=== PATIENT | male | born 1940 | race Caucasian/White ===

== ENCOUNTER 2020-04-13 11:32 | Inpatient (IN) | payer OTHER ==
[~2020-04-13] VITALS: Ht 180.3 cm; Wt 55.1 kg
--- NOTE | ~2020-04-13 | EMS ---
[facility] [address] [place] [address] EMS Patient Care Report Name: LUCILA SOTO Room #: 170-9 ADM IN M.R.#: [id number] Admission: 04/13/20 Attend Phys: Jesus Vargas MD Discharge: Date of : 38 Report #: [id number] THIS REPORT FOR: //name// Report Transmitted: 04/13/2020 22:04 EMS Care Summary [place], [place]/[facility] Incident [id number] @ 04/13/2020 10:40 Incident Location [address] [facility] 307 Patient LUCILA SOTO Male, 79 Years 1940 Patient Address [address] [address] Patient History Congestive Heart Failure (CHF),Dementia,Hyperlipidemia, Patient Allergies Morphine,Meperidine,Metformin, Patient Medications None Reported, Chief Complaint Altered Mental status Disposition Transported No Lights/[place] Dispatch Reason Falls Transported To [facility] Narrative Responded to the half-way for report of a patient who had fell. Arrived on scene at the half-way and found the patient in room 307 lying in bed alert to self with a GCS of 14. Firefighters arrived first on scene and received [address] [address] EMS Patient Care Report Name: LUCILA SOTO Room #: 170-9 ADM IN M.Sly.#: [id number] Admission: 04/13/20 Attend Phys: Jesus Vargas MD Discharge: Date of : 38 Report #: [id number] report from the half-way staff. The firefighters on scene relayed the information provided by the half-way staff to EMS. The firefighters on scene reported that the patient was reported to have an unwitnessed fall yesterday and was found by the staff at the facility lying on the ground. Firefighters reported that the half-way staff stated advised that 911 was called because the half-way staff believed that the patient was experiencing altered mental status and reported that the patient was experiencing left shoulder pain. The patient was able to follow commands and was assessed by EMS on scene and found to be negative on a [place] [facility] prehospital stroke assessment. The patient was questioned and found to be alert to self but was unaware that he had sustained a fall. The patient when questioned asked if he was experiencing shoulder pain and the patient would not his head vertically back and forth. The patient was then assisted from the half-way bed using a sheet carry and placed ontp the stretcher without incident. The patient was then moved out of the facility and placed into the back of the ambulance without incident. The patient was monitored throughout transport with no changes in mental status or condition. Patient care was transferred to the receiving facility without incident. Med unit back in service. Initial Vitals @11:06P: 52, @11:15P: 76,CO: 2,SpO2: 96, @11:03P: 64,R: 18,BP: 166/69,Pain: 2/10,GCS: 14,SpO2: 95,Revised Trauma: 12, @11:07P: 85,SpO2: 94, @11:09P: 64,R: 18,BP: 171/74,Pain: 2/10,GCS: 14,Glucose: 110,SpO2: 92,Revised Trauma: 12, Assessments @11:00MENTAL:Confused,Person Oriented,SKIN:HEENT:Head/Face: No Abnormalities,Neck/Airway: No Abnormalities,LUNG SOUNDS:General: No Abnormalities,Left Upper: No Abnormalities,Right Upper: No Abnormalities,Left Lower: No Abnormalities,Right Lower: No Abnormalities,ABDOMEN:General: No Abnormalities,Left Upper: No Abnormalities,Right Upper: No Abnormalities,Left Lower: No Abnormalities,Right Lower: No Abnormalities,PELVIS//GI:No Abnormalities,EXTREMITIES:Left Arm: No Abnormalities,Right Arm: No Abnormalities,Left Leg: No Abnormalities,Right Leg: No Abnormalities,PULSE:NEURO: Impression Altered Mental Status Procedures @11:1512-Lead ECGResponse: UnchangedSucceeded@11:0712-Lead ECGResponse: UnchangedSucceeded@11:00ALS AssessmentResponse: UnchangedSucceeded@11:063-Lead ECGResponse: UnchangedSucceeded@11:08Saline Lock 3cc (20 ga) Site: [place] [address] EMS Patient Care Report Name: LUCILA SOTO Room #: 170-9 ADM IN M.R.#: [id number] Admission: 04/13/20 Attend Phys: Jesus Vargas MD Discharge: Date of : 38 Report #: [id number] Antecubital-LeftResponse: UnchangedFailed Timeline 10:39,Call Received 10:39,Dispatch Notified 10:40,Dispatched 10:45,En Route 10:59,On Scene 11:00,At Patient 11:00,ALS Assessment,Response: UnchangedSucceeded, 11:03,BP: 166/69 M,PULSE: 64,RR: 18 R,SPO2: 95 Ox,ETCO2: ,BG: ,PAIN: 2,GCS: 14, 11:06,3-Lead ECG,Response: UnchangedSucceeded, 11:06,BP: / M,PULSE: 52,RR: R,SPO2: Ox,ETCO2: ,BG: ,PAIN: ,GCS: , 11:07,12-Lead ECG,Response: UnchangedSucceeded, 11:07,BP: / M,PULSE: 85,RR: R,SPO2: 94 Ox,ETCO2: ,BG: ,PAIN: ,GCS: , 11:08,Saline Lock 3cc 20 ga Site: Antecubital-Left,Response: UnchangedFailed, 11:09,BP: 171/74 M,PULSE: 64,RR: 18 R,SPO2: 92 Ox,ETCO2: ,B,PAIN: 2,GCS: 14, 11:13,Depart Scene 11:15,12-Lead ECG,Response: UnchangedSucceeded, 11:15,BP: / M,PULSE: 76,RR: R,SPO2: 96 Ox,ETCO2: ,BG: ,PAIN: ,GCS: , 11:27,At Destination 11:47,Call Closed Disclaimer v1.1 Copyright 2020 [employer] This EMS Care Summary contains data elements from the applicable legal record (which may be displayed differently). It is designed to provide pertinent information for the following purposes: continuity of care, clinical quality, and state data reporting. The complete legal record is available to ED staff and administrators of the receiving hospital in [employer] Patient Tracker. All data is provided "as is."
[2020-04-13 11:37] VITALS: BP 147/65
[2020-04-13 12:15] LABS: URINE BILIRUBIN NEGATIVE (Negative); URINE BLOOD 3+ (Negative); URINE CLARITY CLEAR; URINE COLOR YELLOW; URINE GLUCOSE-RANDOM* NEGATIVE (Negative); URINE KETONES NEGATIVE (Negative); URINE LEUKOCYTES-REFLEX TRACE (Negative); URINE NITRITE-REFLEX NEGATIVE (Negative); URINE PROTEIN (DIPSTICK) NEGATIVE (Negative); URINE UROBILINOGEN 0.2 E.U./dl (0.2-1.0)
[2020-04-13 12:19] LABS: ABSOLUTE NEUTROPHILS 7.3 thou/uL (1.4-8.2); BASOPHILS 0.2 % (0.0-2.0); EOSINOPHILS 0.2 % (0.0-3.0); HEMATOCRIT 36.2 % (42.0-52.0); HEMOGLOBIN 12.4 gm/dL (14.0-18.0); LYMPHOCYTES 13.2 % (24.0-44.0); MCH 33.4 pg (26.0-34.0); MCHC 34.2 g/dL (28.0-37.0); MCV 97.6 fL (80.0-100.0); MONOCYTES 6.6 % (1.0-8.0); PLATELET COUNT 146 thou/uL (150-400); POLYS 79.8 % (36.0-66.0); RBC 3.71 mil/uL (4.50-6.00); RDW 13.8 % (10.5-14.5); WBC 9.1 thou/uL (4.0-11.0)
--- NOTE | 2020-04-13 12:25 | NUR ---
KELLY CLAMPED FOR 10 MIN AFTER 1100 ML DARK BROWN URINE, UNCLAMPED
[2020-04-13 12:29] LABS: CALCIUM 9.8 mg/dL (8.5-10.1); CREATININE 2.8 mg/dL (0.7-1.3)
[2020-04-13 12:37] LABS: BACTERIA-REFLEX 1-9 Few /HPF (None Seen); CASTS None Seen /LPF (None Seen); CRYSTALS None Seen /LPF (None Seen); SQUAMOUS 0-3 Few /LPF (0-3); URINE RBC 3-10 Few /HPF (0-2); URINE WBC-REFLEX 0-5 Rare /HPF (0-5)
[2020-04-13 19:14] LABS: FOLIC ACID 35.8 ng/mL (8.6-58.9)
--- NOTE | 2020-04-13 20:33 | NUR ---
TALKED WITH DAUGHTER JAYME SOTO, SHE IS AWARE OF CONDITION AND ADMISSION
[2020-04-13 22:55] VITALS: BP 167/81
[2020-04-13 23:40] VITALS: BP 120/54
[2020-04-13 23:48] VITALS: BP 154/69
--- NOTE | 2020-04-14 01:15 | NUR ---
PT ARRIVED FROM ED @2330 AWAKE AND ALERT. CONFUSED. ANAIS WRIST RESTRAINT INTACT. FOLLEY IN PLACE WITH BLOODY DRAINAGE. IV INTACT WITH FLUIDS INFUSING. PO FLUID PROVIDED. FALL PREC IN PLACE, ISOLATION MAINTAINED. PT 95% ON RA. SCD'S ON ANAIS LOWER EXT. PACEMAKER ON LEFT CHEST. PER REPORT PT WAS VERY RESTLESS IN THE ED, AGITATED AND PULLING ON FOLLEY MEDS GIVEN IN THE ER. ON ASSESSMENT ON THE UNIT PT CALM. WILL CONT TO MONITOR
[2020-04-14 03:18] LABS: ABSOLUTE NEUTROPHILS 7.9 thou/uL (1.4-8.2); HEMATOCRIT 36.6 % (42.0-52.0); HEMOGLOBIN 12.4 gm/dL (14.0-18.0); LYMPHOCYTES 7.4 % (24.0-44.0); MCH 33.5 pg (26.0-34.0); MCHC 33.9 g/dL (28.0-37.0); MCV 98.7 fL (80.0-100.0); MONOCYTES 5.7 % (1.0-8.0); PLATELET COUNT 130 thou/uL (150-400); POLYS 86.9 % (36.0-66.0); RBC 3.71 mil/uL (4.50-6.00); RDW 13.8 % (10.5-14.5); WBC 9.1 thou/uL (4.0-11.0)
[2020-04-14 04:10] LABS: CALCIUM 9.6 mg/dL (8.5-10.1); POTASSIUM 4.5 mmol/L (3.5-5.1)
[2020-04-14 04:11] LABS: CREATININE 1.5 mg/dL (0.7-1.3)
[2020-04-14 04:14] VITALS: BP 120/54
[2020-04-14] MEDS ORDERED: NORVASC 2.5 MG2.5 M1 PO (04:50)
[2020-04-14] MEDS ORDERED: ASA81BEC PO (04:50)
[2020-04-14] MEDS ORDERED: LIPITOR80 MG PO (04:51)
[2020-04-14] MEDS ORDERED: CARVEDILOL12.5 MG PO (04:52)
[2020-04-14] MEDS ORDERED: CLOPIDOGREL75 MG PO (04:54)
[2020-04-14] MEDS ORDERED: HYDROCODON-ACE1 EAC7 PO (04:57)
[2020-04-14] MEDS ORDERED: ISOSORBIDE MONO60 M1 PO (05:00)
[2020-04-14] MEDS ORDERED: LISINOPRIL5 MG PO (05:02)
[2020-04-14] MEDS ORDERED: NITROSTAT0.4 M1 SUBLING (05:11)
[2020-04-14] MEDS ORDERED: PROTONIX40 M3 PO (05:12)
[2020-04-14] MEDS ORDERED: RANOLAZINE ER1000 MG PO (05:13)
[2020-04-14] MEDS ORDERED: SPIRONOLACTONE25 MG PO (05:14)
[2020-04-14] MEDS ORDERED: TAMSULOSIN HCL0.4 MG PO (05:15)
[2020-04-14] MEDS ORDERED: DESYREL150 MG PO (05:16)
[2020-04-14 08:16] VITALS: BP 110/48
--- NOTE | 2020-04-14 13:13 | NUR ---
PT CARE ASSUMED AT 0700. ALERT AND VERY FORGETFUL. NONVERBAL AT THIS TIME WITH MUMBLES TRYING TO COMMUNICATE. SOFT WRIST RESTRAINTS IN PLACE. HODA UPDATED ON PT CARE. PT CONTINUES TO PULL ON KELLY CATHETER SOON RESTRAINTS ARE LOOSENED TO TURN. . PACEMAKER IN PLACE. FEEDER. Q2 TURNS. IV PATENT WITH NO REDNESS OR EDEMA, FLUIDS INFUSING. PT HAS LUCRECIA IN PLACE BEHIND TH EEAR FROM A FALL LAST FRIDAY THAT WERE PLACED AT [place]. FALL PROTOCOL IN PLACE. CALL LIGHT IN REACH. WILL CONTINUE TO MONITOR.
[2020-04-14 17:55] VITALS: BP 113/49
[2020-04-14 20:00] VITALS: BP 121/55
[2020-04-15 03:36] VITALS: BP 146/58
--- NOTE | 2020-04-15 04:17 | NUR ---
PT SLEEPING AT BEGINNING OF SHIFT, NOTED TO WAKE UP WITH RESTLESSNESS ATTEMPTING TO PULL AT LINES. PT REPOSITIONED, RESTRAINTS IN PLACE. PT NOTED TO BE ALERT TO SELF, DISORIENTED TO TIME, PLACE, AND SITUATION. PT ASSESSED WITH INTACT SENSATION AND CAPILLARY REFILL LESS THAN 3SEC IN ALL EXTREMITIES. PT DENIES PAIN AND SOB WHILE ON ROOM AIR. PT RECEIVING SCHEDULED PO NORCO Q8HR. PT NOTED TO CHEW PILLS DESPITE REDIRECTION, PILLS CRUSHED WHEN APPROPRIATE, GIVEN WITH APPLESAUCE. PT TOLERATING PO INTAKE OF FLUIDS AND REGULAR DIET. PT REQUIRING FEEDING ASSISTANCE. PT MAINTAINS KELLY, BLOOD TINGED URINE IN CATHETER BAG, DRIED BLOOD OBSERVED NEAR INSERTION SITE UPON REPORT, NO FURTHER BLEEDING NOTED THROUGHOUT SHIFT. PT RESTING IN BED THROUGHOUT SHIFT, FREQUENT REPOSITIONING ENCOURAGED. PT ENCOURAGED TO NOTIFY STAFF FOR ALL NEEDS, CALL LIGHT WITHIN REACH, BED IN LOWEST POSITION, BED ALARM ON, ROOM REMAINS NEAR NURSES STATION, FREQUENT MONITORING WILL CONTINUE.
[2020-04-15 07:49] VITALS: BP 139/71
--- NOTE | 2020-04-15 10:37 | NUR ---
Assumed care of pt at 0700. Pt drowsy and confused. Restraints in place. Poor appetite. Desai catheter in place. IVF infusing. Pills given crushed in apple sauce. Frequent rounding. Fall precautions in place. Will continue to monitor.
[2020-04-15 10:59] LABS: HEMATOCRIT 29.9 % (42.0-52.0); MCH 33.9 pg (26.0-34.0); MCV 99.6 fL (80.0-100.0); RBC 3.01 mil/uL (4.50-6.00); RDW 14.3 % (10.5-14.5); WBC 10.4 thou/uL (4.0-11.0)
[2020-04-15 11:04] LABS: HEMOGLOBIN 10.2 gm/dL (14.0-18.0)
[2020-04-15 11:28] LABS: CALCIUM 9.1 mg/dL (8.5-10.1); CREATININE 1.1 mg/dL (0.7-1.3); POTASSIUM 4.8 mmol/L (3.5-5.1)
[2020-04-15 15:35] VITALS: BP 128/84
[2020-04-16 07:34] VITALS: BP 144/59
[2020-04-16 15:20] VITALS: BP 125/63
--- NOTE | 2020-04-16 17:30 | NUR ---
PT A&OX4, VSS. PATIENT GIVEN SCHEDULED PAIN MEDICATION. PATIENT REMAINS IN RESTRAINTS D/T PULLING AT CATHETER AND CONSTANTLY TRYING TO CLIMB OUT OF BED. PATIENT EATING AND DRINKING. URINE DARK YELLOW, KELLY PATENT. IV INTACT IN RIGHT AC. NO SIGNS OF DISTRESS. WILL CONTINUE TO MONITOR.
--- NOTE | 2020-04-17 06:21 | NUR ---
VSS-AFEBRILE. CONFUSED BUT CALM AND COOPERATIVE OVERNIGHT. ATTEMPTED ONCE TO PULL ON KELLY, EASILY REDIRECTED, RESTED WELL WITH FEW NEEDS. FALL PRECAUTIONS IN PLACE.
[2020-04-17 07:35] VITALS: BP 159/67
[2020-04-17 09:05] LABS: ABSOLUTE NEUTROPHILS 4.7 thou/uL (1.4-8.2); BASOPHILS 0.4 % (0.0-2.0); EOSINOPHILS 3.5 % (0.0-3.0); HEMATOCRIT 30.2 % (42.0-52.0); HEMOGLOBIN 10.3 gm/dL (14.0-18.0); MCH 33.9 pg (26.0-34.0); MCHC 34.2 g/dL (28.0-37.0); MCV 99.1 fL (80.0-100.0); MONOCYTES 5.5 % (1.0-8.0); PLATELET COUNT 122 thou/uL (150-400); POLYS 70.6 % (36.0-66.0); RBC 3.05 mil/uL (4.50-6.00); WBC 6.7 thou/uL (4.0-11.0)
[2020-04-17 09:22] LABS: CALCIUM 8.9 mg/dL (8.5-10.1); CREATININE 0.8 mg/dL (0.7-1.3); POTASSIUM 4.1 mmol/L (3.5-5.1)
--- NOTE | 2020-04-17 14:52 | NUR ---
PT ADMITTED RELATED TO ACUTE ON CHRONIC RENAL FAILURE; S/P FALL W/L TEMPORAL TRAUMA. CM REVIEWED CHART AND SPOKE WITH CARE TEAM. CM ATTEMPTED PC TO PT ROOM PT INDICATED HE HAD BEEN AT A [place] FACILITY CRIMINAL ANALYST BUT THAT WAS ALL THE INFO PT WAS ABLE TO PROVIDE. CM CALLED AND SPOKE WITH PT'S DTR. SHE INDICATED THAT PT HAD BEEN LIVING IN [place] PREVIOUSLY BUT HAD MOVES TO [facility] ABOUT A YEAR AGO AND HAD BEEN LIVING IN A HOUSE WITH HIS BROTHER GUILLERMINA AND HIS . DTR INDICATED THAT PT HAD BEEN AT [facility] FOR SKILLED REHAB PRIOR TO ADMISSION. PT HAD FALLEN AND HAD GONE TO [place] THEN WENT TO [place]. DTR INDICATED HE HAD BEEN THERE ABOUT A WEEK. DTR INDICATED THAT GUILLERMINA HD BEEN TAKING CARE OF PT PRIOR TO THAT AND THAT PLAN WOULD BE FOR PT TO RETURN TO [place] FOR CONTINUED REHAB WITH EVENTUAL RETURN TO HOUSE WITH GUILLERMINA. CM TO FOLLOW INDICATED WITH DC PLANNING.
[2020-04-17 15:30] VITALS: BP 114/59
[2020-04-17 16:30] VITALS: BP 186/121
[2020-04-17 16:42] VITALS: BP 136/66
--- NOTE | 2020-04-17 16:42 | NUR ---
PATIENT FELL OUT OF BED AT 1630. HEAD SCHOOL CUSTODIAN HEARD BED ALARM RAN IN AND WITNESSED PATIENT FACING DOOR BACK TO WINDOW AND FALL. PATIENT FELL AND HIT HEAD ON WALL UNDER WINDOW. VITALS TAKEN AND STABLE, PATIENT BACK IN BED.
[2020-04-17 17:30] VITALS: BP 136/66
[2020-04-17 19:53] VITALS: BP 148/66
--- NOTE | 2020-04-18 00:59 | NUR ---
ASSUMED CARE OF PT AT 1900. PT IS A/O X1 AND IS CURRENTLY ON BEDREST. PT DENIES C/O PAIN OR DISCOMFORT. VSS. PT IS IMPULSIVE AND CONFUSED. FOR SAFETY REASONS THERE IS STAFF AT BEDSIDE. PRN ANXIETY MEDICATION GIVEN. SPOKE WITH DAUGHTER AND GAVE UPDATE ON CARE. AT THIS TIME PT IS LYING IN HIS BED AND APPEARS TO BE SLEEPING. CATHETER IN PLACE AND IS DRAINING YELLOW URINE. FALL PRECAUTIONS IMPLEMENTED AND CALL LIGHT IS WITHIN REACH. WILL CONTINUE TO MONITOR
[2020-04-18 06:16] LABS: HEMATOCRIT 29.4 % (42.0-52.0); HEMOGLOBIN 10.1 gm/dL (14.0-18.0); MCHC 34.2 g/dL (28.0-37.0); MCV 99.5 fL (80.0-100.0); RBC 2.96 mil/uL (4.50-6.00); RDW 14.3 % (10.5-14.5); WBC 7.3 thou/uL (4.0-11.0)
[2020-04-18 06:18] LABS: CALCIUM 8.3 mg/dL (8.5-10.1); POTASSIUM 4.5 mmol/L (3.5-5.1)
[2020-04-18 08:20] VITALS: BP 132/61
--- NOTE | 2020-04-18 09:17 | NUR ---
PT FELL YESTERDAY AROUND 1630. IT WAS FOUND THAT PT SUSTAINED ACUTE SUBDURAL HEMATOMA. THIS AM CARE TEAM INDICATED THAT PT SHOULD BE TRANSFERED TO CCU RM 203 FOR CONTINUED MEDICAL MONITORING. CM ATTEMPTED PC TO PT'S DTR TO INFORM HER OF ROOM TRANSFER. CM LEFT VM. CM TO TRY HER BACK. CM TO FOLLOW INDICATED WITH DC PLANNING. CLINICAL UPDATE TO BE SENT TO [facility].
--- NOTE | 2020-04-18 13:30 | NUR ---
Received awake on bed, pt combative, confused and trying to get out of bed. Falls bundle in place- pt had a fall yesterday and hit his head, CT scan shows subdural hematoma- pt scheduled to have another CT scan this AM, PRN meds given as prescribed prior to procedure. On telemetry; no complains and signs of chest pain, crushing sensation and heaviness. Assisted in ADLs. On regular diet- tolerating well; assisted and encouraged in eating and drinking; no nausea, no vomiting and no abdominal pain noted. With martinez in place, draining well; output measured and recorded accordingly. With SL at R FA- intact and flushing well; wrapped in coban. Pt brought down to CT scan via cart; tolerated procedure well; back to room safely. With neuro consult- called in consult thru answering service-will inform physician. Pt hooked up to O2 at 2lpm. eyewear manufacturing supervisor called, pt to transfer to [facility]- they need to transfer out a pt to [facility] britt then to bring pt to CCU- charge nurse informed. CM contacted pt's daughter about fall yesterday and transfer to CCU. To continue monitoring patient. No post fall paperwork filled out from yesterday- credit relationship manager and charge nurse aware. Report given to CHELSEA Thomas, informed her that pt's daughter informed re: new room number, re: restraints off from yesterday at 1600. Transferred via bed safely.
--- NOTE | 2020-04-18 13:51 | NUR ---
FAXED CLINICAL UPDATE TO [facility] SPOKE WITH VIKAS IN ADM SHE RECEIVED UPDATE. DP TO FOLLOW.
[2020-04-18 15:45] VITALS: BP 117/55
[2020-04-18 20:15] VITALS: BP 129/68
[2020-04-19 00:30] VITALS: BP 123/65
--- NOTE | 2020-04-19 03:36 | NUR ---
Assumed pt care at 1900. Pt is sleeping upon arrival to room. Pt is confused upon waking up. Alert to self only. No sign of distress noted in pt. Pt wakes and is confused. Fall precaution in place. Assessment completed and documented. Scheduled meds administered to pt. Tolerated PO intake. No acute events overnight. Continue to monitor. No further needs at this time.
[2020-04-19 05:01] VITALS: BP 99/44
[2020-04-19 05:15] LABS: CALCIUM 8.5 mg/dL (8.5-10.1); POTASSIUM 4.1 mmol/L (3.5-5.1)
[2020-04-19 05:21] LABS: HEMATOCRIT 26.5 % (42.0-52.0); MCH 33.9 pg (26.0-34.0); MCHC 34.1 g/dL (28.0-37.0); MCV 99.5 fL (80.0-100.0); RBC 2.66 mil/uL (4.50-6.00); RDW 14.4 % (10.5-14.5); WBC 6.9 thou/uL (4.0-11.0)
[2020-04-19 08:10] VITALS: BP 119/52
[2020-04-19 15:36] VITALS: BP 118/62
--- NOTE | 2020-04-19 17:22 | NUR ---
ASSUMED CARE AT SHIFT CHANGE, ALERT TO SELF ONLY, RESTLESS AND MEDICATED INDICATED, JAYME PATIENT'S DAUGHTER WAS UPDATED WITH PATIENT CONDITION AND PLAN. WILL CONTINUE WITH POC.
[2020-04-19 20:00] VITALS: BP 147/68
[2020-04-20 04:45] VITALS: BP 141/73
[2020-04-20 04:53] LABS: CALCIUM 8.8 mg/dL (8.5-10.1); CREATININE 0.9 mg/dL (0.7-1.3); POTASSIUM 4.9 mmol/L (3.5-5.1)
[2020-04-20 05:09] LABS: HEMATOCRIT 29.7 % (42.0-52.0); HEMOGLOBIN 10.1 gm/dL (14.0-18.0); MCHC 34.1 g/dL (28.0-37.0); MCV 99.8 fL (80.0-100.0); RBC 2.97 mil/uL (4.50-6.00); RDW 14.4 % (10.5-14.5); WBC 8.2 thou/uL (4.0-11.0)
--- NOTE | 2020-04-20 06:37 | NUR ---
AT BEGINNING OF SHIFT TRYING TO GET OUT OF BED. PAST HS MEDS PATIENT CALMED DOWN AND SLEPT. WORKING ON GOALS AND PLAN OF CARE FOR NOC. CONTINUE TO ASSES CLOSELY.
--- NOTE | 2020-04-20 07:55 | NUR ---
Pt seen for LOS. Pt with fair appetite, consuming avg of 52% at meals. Pt wt on admit noted at 138# and decreased to 121# at present. However questions bed scale accuracy with room transfers. No c/o GI distress. No pressure ulcers noted. Pt remains at low nutrition risk.
[2020-04-20 08:05] VITALS: BP 127/70
[2020-04-20] MEDS ORDERED: KEPPRA 500 MG500 M1 PO (11:33)
[2020-04-20] MEDS ORDERED: FINASTERIDE5 MG PO (11:34)
[2020-04-20] MEDS ORDERED: VITAMIN D325 MC1 PO (11:34)
[2020-04-20 11:49] VITALS: BP 91/41
--- NOTE | 2020-04-20 12:50 | NUR ---
PT DISCHARGING TODAY BACK TO [facility] FAXED DC ORDERS/SUMMARY TO FACILITY SPOKE WITH VIKAS IN ADM SHE RECEIVED ORDERS AND ARRANGED TRANSPORT FOR 1400 TODAY. NOTIFIED PT'S DTR (JAYME) OF DC AND TIME OF TRANSPORT SHE WAS VERY THANKFUL FOR THE CARE HER FATHER RECEIVED HER THROUGH HIS WHOLE HOSPITAL STAY SHE MENTIONED NURSES (KOURTNEY, MALICK, FLORA) GIVING HER FATHER GREAT CARE. UNIT NOTIFIED AND CHART COPY PER US. RN TO CALL REPORT TO [phone].
--- NOTE | 2020-04-20 14:21 | NUR ---
ASSUMED CARE OF PT AT SHIFT CHANGE. ASSESSMENTS CHARTED. MEDS GIVEN PER JUN. PT ALERT TO SELF, TALKING INCOHERENTLY, GESTURING IN AIR. DISCHARGE ORDERS COMPLETE. TRANSPORTATION [facility]IA [facility] WITH A WHEELCHAIR TO FACILITY.
== END 2020-04-20 14:23 | DRG 85 ==
LOC: ER 11:32 → 2N 18:20 → 4W 18:20 → 3W 18:20 → EROBS 18:20 → 3W 23:35 → 4W 04-15 06:49 → 2N 04-18 13:00
PROVIDERS: Emergency Medicine; Hospitalist; Nurse Practitioner; ADMIT Hospitalist; ATTEND Hospitalist
DX: S06.5X0A Traumatic subdural hemorrhage without loss of consciousness, initial encounter (principal); N17.0 Acute kidney failure with tubular necrosis; E87.1 Hypo-osmolality and hyponatremia; G93.40 Encephalopathy, unspecified; I13.0 Hypertensive heart and chronic kidney disease with heart failure and stage 1 through stage 4 chronic kidney disease, or unspecified chronic kidney disease; R31.9 Hematuria, unspecified; R33.9 Retention of urine, unspecified; N13.9 Obstructive and reflux uropathy, unspecified; I50.9 Heart failure, unspecified; N40.1 Benign prostatic hyperplasia with lower urinary tract symptoms; K21.9 Gastro-esophageal reflux disease without esophagitis; I25.10 Atherosclerotic heart disease of native coronary artery without angina pectoris; R41.0 Disorientation, unspecified; N18.9 Chronic kidney disease, unspecified; F03.90 Unspecified dementia, unspecified severity, without behavioral disturbance, psychotic disturbance, mood disturbance, and anxiety; Z20.828 Contact with and (suspected) exposure to other viral communicable diseases; D64.89 Other specified anemias; Z95.1 Presence of aortocoronary bypass graft; Z95.0 Presence of cardiac pacemaker; Z88.8 Allergy status to other drugs, medicaments and biological substances; W18.39XA Other fall on same level, initial encounter; Y93.89 Activity, other specified; Y92.098 Other place in other non-institutional residence as the place of occurrence of the external cause; Y99.8 Other external cause status; Z66 Do not resuscitate
CPT/HCPCS: 10045; 10081; 10879